=== PATIENT | male | born 1960 | race Caucasian/White ===

== ENCOUNTER → 2017-10-02 | Outpatient (CLI) | payer OTHER ==
[~2017-10-02] MED LIST: ACTOS15 MG; ADULT LOW DOSE81 MG; AMBIEN 10 MG TA10 MG; DIAZEPAM 5 MG5 MG; GLUCOPHAGE1000 MG; HYDROCHLOROTHIA25 M1; KEFLEX500 MG PO; LIPITOR40 MG; LISINOPRIL40 MG; LOPRESSOR100 MG; PREDNISONE50 MG PO; PRILOSEC 20 MG20 MG
[2017-10-02 10:21] LABS: CREATININE 1.7 mg/dL (0.6-1.3)
== END ==
LOC: M.LAB 10-01 15:00
PROVIDERS: Family Medicine
DX: R06.02 Shortness of breath (principal); Z86.711 Personal history of pulmonary embolism

== ENCOUNTER 2020-10-21 15:34 | Inpatient (IN) | payer OTHER ==
[~2020-10-21] VITALS: Ht 175.3 cm; Wt 88.9 kg
--- NOTE | ~2020-10-21 | CON ---
[address] [address] CONSULTATION Name: SILAS DE LOS SANTOS Room: [address] IN M.R.#: [id number] Admission: 10/21/20 Attend Phys: Stefany Ordonez Discharge: 10/25/20 Date of : 60 Report #: [id number] THIS REPORT FOR: cc: Kashif Mosquera Russell J. DO Khosla, Parveen K. MD ~ DOC #: [id number] Av Flynn MD DATE OF CONSULTATION: 10/22/2020 HISTORY OF PRESENT ILLNESS: This is a 60-year-old male patient who is evaluated by me for what looks like unusual and complicated history. 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 He got laid off because of the pandemic. Then, he went back to work and realized that he could not work because he fell down and his balance was poor. He drinks significant amount of alcohol in the baseline. When I asked the patient's whether he drank more alcohol than usual when he was laid off from pandemic and was sitting at home, she was somewhat defensive and I could not tell, but it looks like he has drank alcohol for some time. She says the problem was going on for some time. He had developed some ataxia and some memory issues. Most of the symptoms were nonspecific, but it was going on for some time, but then he became catatonic. He will stare into the blank. He was admitted to [facility] and subsequently was transferred to [facility], which I suppose was either because of prolonged EEG monitoring or a consultation with an epileptologist. She said they told her that he had seizure, but I do not know what the final diagnosis was because it did not look like they put him on any anticonvulsant. Subsequently, the patient is here, he was catatonic before he came, but he has become somewhat better. REVIEW OF SYSTEMS: Indicates that his memory has become poor. He was pretty sharp before this happened, according to the . He has some pinched nerve in the neck. It looks like he drinks significant amount of alcohol, but he also smokes. He has no history of anxiety or depression as I understand. I do not know what the final diagnosis at [facility] was, whether the Psychiatry was consulted or not. Rest of the 14-point review of system was noncontributory. PAST MEDICAL HISTORY: Negative for any psychiatric problem. FAMILY HISTORY: Unremarkable. SOCIAL HISTORY: He drinks alcohol as well as smokes. PHYSICAL EXAMINATION: VITAL SIGNS: His blood pressure is 155/87, pulse rate is 121, [place] [address] CONSULTATION Name: SILAS DE LOS SANTOS Room: [address] IN .#: [id number] Admission: 10/21/20 Attend Phys: Stefany Ordonez Discharge: 10/25/20 Date of : 60 Report #: [id number] is 98.5. GENERAL: He is alert. He just basically stares into the blank. When I asked him what month it is, it takes him a long time, but ultimately he is able to tell me it is September. When I asked him what hospital he is in, he said it is [facility]. When I asked him who the president is, he can tell me. He is a very well-developed individual. He does not have any hearing or vision issues. NEUROLOGIC: His ability to understand the instructions to carry out a neurological examination is limited. I tried to do the cranial nerve examination. I do not see any focality. Neuromuscular examination was carried out. His strength looks unremarkable. Position sense is difficult to tell because he does not even understand the instructions. I did the cerebellar sign and his qluhos-pb-xcmb and nhdb-lq-qksd is unremarkable. He does it poorly because he does not understand the instructions. He does not have any meningeal sign. He did not cooperate with the fundus examination. LABORATORY DATA: His white count is 6.3. Sodium is somewhat low at 132, it has been low for a long time for some reason. His creatinine is 1.5. His TSH is normal. He did have a CT scan of the head which does not show any acute abnormality. IMPRESSION AND PLAN: This is a pretty unusual history. We need his record in [facility] to see what they did and if they found any organic pathology. She thinks even he had an MRI. I have asked them to pull those records out and we will see what those records show. We may even have to do the spinal tap, it is a relatively new onset, but the story is not very persistent in that regard. I will put him on some thiamine and multivitamin. I will also suggest a psychiatric evaluation, although we need to put some more effort to rule out any ORE [employer]ER organic pathology in this patient. Dr. Woody will follow up this patient with you from tomorrow and I will check out with him. MD PENNIE Alejandra/ZAC By: [id number] Flynn MD /carlene
[~2020-10-21 15:34] MED LIST changes: -ADULT LOW DOSE81 MG; +ADULT LOW DOSE81 MG PO; +ANORO ELLIPTA1 EACH; -DIAZEPAM 5 MG5 MG; +DIAZEPAM 5 MG5 MG PO; +GEMFIBROZIL 60600 M1 PO; -GLUCOPHAGE1000 MG; +GLUCOPHAGE1000 MG PO; +GLYXAMBI 10 MG1 EACH PO; +HYDROCODONE-ACE15 ML PO; +IRON325 PO; +LASIX 40 MG TAB40 M2 PO; -LIPITOR40 MG; +LIPITOR40 MG PO; +LOPRESSOR100 M1 PO; +LOSARTAN POTAS100 MG PO; +LYRICA 50 MG50 MG PO; +MENS ONE A DAY PO; +NORVASC10 MG PO; +PREDNISONE 10 M10 MG PO; -PRILOSEC 20 MG20 MG; +PRILOSEC 20 MG20 MG PO; +SINGULAIR 10 MG10 M1 PO; +TOPROL XL100 MG PO; +UNISOM50 MG PO; +VENTOLIN HFA 1818 GM INH
[2020-10-21 15:45] VITALS: BP 138/78
[2020-10-21] MEDS ORDERED: KLOR-CON 10 ER10 MEQ PO (16:00)
[2020-10-21 16:07] LABS: ABSOLUTE EOSINOPHILS 0.2 thou/uL (0.0-0.7); ABSOLUTE LYMPHOCYTES 1.2 thou/uL (0.8-5.3); ABSOLUTE MONOCYTES 0.7 thou/uL (0.0-1.2); ABSOLUTE NEUTROPHILS 4.2 thou/uL (1.6-8.1); BASOPHILS 0.7 %; EOSINOPHILS 2.5 %; HEMATOCRIT 45.8 % (42.0-52.0); HEMOGLOBIN 15.3 gm/dL (14.0-18.0); LYMPHOCYTES 19.6 %; MCH 31.3 pg (26.0-34.0); MCHC 33.5 g/dL (28.0-37.0); MCV 93.5 fL (80.0-100.0); MONOCYTES 10.3 %; MPV 8.8 fl. (7.2-11.1); NUCLEATED RBCS 0 /100WBC; PLATELET COUNT* 242 thou/uL (150-400); POLYS 66.9 %; RDW-CV 13.1 % (10.5-14.5); WBC 6.3 thou/uL (4.0-11.0)
[2020-10-21 16:16] LABS: CALCIUM 9.4 mg/dL (8.5-10.1); CREATININE 1.5 mg/dL (0.6-1.3); POTASSIUM 4.8 mmol/L (3.5-5.1)
[2020-10-21 16:21] LABS: APTT 27.4 Seconds (25.0-31.3); PROTIME 10.9 Seconds (9.20-11.50)
[2020-10-21 16:27] LABS: ALBUMIN 3.8 g/dL (3.4-5.0); TOTAL BILIRUBIN 0.4 mg/dL (<0.1-1.0); TOTAL PROTEIN 8.1 g/dL (6.4-8.2)
[2020-10-21 16:36] LABS: ACETAMINOPHEN < 2 ug/mL (10-30); ALCOHOL < 10 mg/dL (<10)
[2020-10-21 17:04] LABS: URINE BILIRUBIN NEGATIVE (Negative); URINE BLOOD NEGATIVE (Negative); URINE CLARITY CLEAR; URINE COLOR YELLOW; URINE GLUCOSE-RANDOM NEGATIVE (Negative); URINE KETONES NEGATIVE (Negative); URINE LEUKOCYTES-REFLEX NEGATIVE (Negative); URINE NITRITE-REFLEX NEGATIVE (Negative); URINE PROTEIN NEGATIVE (Negative); URINE UROBILINOGEN 0.2 E.U./dl (0.2-1.0)
[2020-10-21 17:11] LABS: AMP/METHAMP Negative (Negative); BARBITURATES Negative (Negative); BENZODIAZEPINES POSITIVE (Negative); COCAINE Negative (Negative); METHADONE Negative (Negative); OPIATES POSITIVE (Negative); PCP Negative (Negative); THC Negative (Negative)
[2020-10-21 19:55] VITALS: BP 135/68
[2020-10-21 21:05] VITALS: BP 153/86
[2020-10-21 23:50] VITALS: BP 149/78
[2020-10-22 04:00] VITALS: BP 155/87
--- NOTE | 2020-10-22 11:01 | EKG ---
[place] [address] ELECTROCARDIOGRAM REPORT Name: SILAS DE LOS SANTOS Room: [address] ADM IN [facility].#: [id number] Admission: 10/21/20 Attend Phys: Michael Greer Discharge: Date of : 60 Date of Service: 10/21/20 1605 Report #: [id number] THIS REPORT FOR: //name// [facility] ED Test Date: 2020-10-21 Test Time: 16:05:13 Pat Name: SILAS DE LOS SANTOS Department: Room: [facility] Gender: M Assistant Men'S Soccer Coach: GAVIN : 1960 Requested By: Clint Rose Order Number: [id number] MD: Micky Zaragoza Measurements Intervals [place] Rate: 99 P: 74 ID: [id number] QRS: 58 QRSD: 140 T: -70 QT: 364 QTc: 468 Interpretive Statements Sinus rhythm Probable left atrial enlargement LBBB Compared to ECG 08/12/2018 12:30:27 Sinus tachycardia no longer present Electronically Signed On 10-22-2020 11:01:01 CDT by Micky Zaragoza [email or web address] <ELECTRONICALLY SIGNED> By: Micky Zaragoza MD, FAC 10/22/20 1101 1605 1605 Micky Zaragoza MD, [facility] /EPI
--- NOTE | 2020-10-22 11:03 | EKG ---
[place] [address] ELECTROCARDIOGRAM REPORT Name: SILAS DE LOS SANTOS Room: [address] IN [facility].#: [id number] Admission: 10/21/20 Attend Phys: Michael Greer Discharge: Date of : 60 Date of Service: 10/21/201941 Report #: [id number] THIS REPORT FOR: //name// [facility] ED Test Date: 2020-10-21 Test Time: 19:42:21 Pat Name: SILAS DE LOS SANTOS Department: Room: [facility] Gender: M Learning And Development Specialist: BRANDIE : 1960 Requested By: Tahmina Roman Order Number: [id number] MD: Micky Zaragoza Measurements Intervals [place] Rate: 118 P: 0 NE: 97 QRS: 46 QRSD: 136 T: -78 QT: 392 QTc: 550 Interpretive Statements Sinus tachycardia Left bundle branch block Compared to ECG 10/21/2020 16:05:13 Sinus rhythm no longer present Electronically Signed On 10-22-2020 11:03:11 CDT by Micky Zaragoza [email or web address] <ELECTRONICALLY SIGNED> By: Micky Zaragoza MD, FACC 10/22/20 1103 41 41 Micky Zaragoza MD, [facility] /EPI
[2020-10-22 11:15] LABS: ABSOLUTE LYMPHOCYTES 1.1 thou/uL (0.8-5.3); ABSOLUTE NEUTROPHILS 6.8 thou/uL (1.6-8.1); BASOPHILS 0.5 %; EOSINOPHILS 0.2 %; HEMATOCRIT 47.6 % (42.0-52.0); HEMOGLOBIN 15.6 gm/dL (14.0-18.0); LYMPHOCYTES 12.7 %; MCHC 32.9 g/dL (28.0-37.0); MCV 94.2 fL (80.0-100.0); MONOCYTES 10.7 %; MPV 9.2 fl. (7.2-11.1); NUCLEATED RBCS 0 /100WBC; PLATELET COUNT* 286 thou/uL (150-400); POLYS 75.9 %; RBC 5.05 mil/uL (4.50-6.00); RDW-CV 13.5 % (10.5-14.5)
[2020-10-22 11:25] LABS: PROTIME 10.9 Seconds (9.20-11.50)
[2020-10-22 11:32] LABS: ALBUMIN 3.9 g/dL (3.4-5.0); CALCIUM 9.7 mg/dL (8.5-10.1); CREATININE 1.6 mg/dL (0.6-1.3); POTASSIUM 4.9 mmol/L (3.5-5.1); TOTAL BILIRUBIN 0.5 mg/dL (<0.1-1.0); TOTAL PROTEIN 8.3 g/dL (6.4-8.2)
[2020-10-22 12:14] LABS: CALCIUM 9.8 mg/dL (8.5-10.1); MAGNESIUM 1.4 mg/dL (1.8-2.4)
[2020-10-22 14:43] LABS: URINE BLOOD 3+ (Negative); URINE CLARITY CLEAR; URINE COLOR YELLOW; URINE GLUCOSE-RANDOM NEGATIVE (Negative); URINE KETONES TRACE (Negative); URINE NITRITE-REFLEX NEGATIVE (Negative); URINE PROTEIN NEGATIVE (Negative); URINE UROBILINOGEN 0.2 E.U./dl (0.2-1.0)
[2020-10-22 14:53] LABS: URINE BILIRUBIN 1+ (Negative); URINE LEUKOCYTES-REFLEX 2+ (Negative)
[2020-10-22 14:56] LABS: ICTOTEST (BILI CONFIRMATORY) Negative (Negative)
[2020-10-22 15:00] LABS: BACTERIA-REFLEX 1-9 Few /HPF (None Seen); CASTS None Seen /LPF (None Seen); CRYSTALS None Seen /LPF (None Seen); SQUAMOUS 4-10 Moderate /LPF (0-3); URINE RBC 3-10 Few /HPF (0-2); URINE WBC-REFLEX 6-15 Few /HPF (0-5)
[2020-10-22 20:00] VITALS: BP 110/67
[2020-10-23] VITALS: BP 127/77
[2020-10-23 04:37] LABS: HEMATOCRIT 41.5 % (42.0-52.0); HEMOGLOBIN 13.7 gm/dL (14.0-18.0); PLATELET COUNT* 219 thou/uL (150-400)
[2020-10-23 04:39] LABS: ABSOLUTE EOSINOPHILS 0.1 thou/uL (0.0-0.7); ABSOLUTE LYMPHOCYTES 1.3 thou/uL (0.8-5.3); ABSOLUTE MONOCYTES 0.7 thou/uL (0.0-1.2); ABSOLUTE NEUTROPHILS 2.8 thou/uL (1.6-8.1); BASOPHILS 0.7 %; EOSINOPHILS 1.5 %; LYMPHOCYTES 27.1 %; MCH 31.3 pg (26.0-34.0); MCHC 32.9 g/dL (28.0-37.0); MCV 95.1 fL (80.0-100.0); MONOCYTES 13.7 %; MPV 9.1 fl. (7.2-11.1); NUCLEATED RBCS 0 /100WBC; RBC 4.36 mil/uL (4.50-6.00); RDW-CV 13.1 % (10.5-14.5); WBC 4.9 thou/uL (4.0-11.0)
[2020-10-23 04:44] VITALS: BP 131/70
[2020-10-23 04:52] LABS: ALBUMIN 3.2 g/dL (3.4-5.0); CALCIUM 8.7 mg/dL (8.5-10.1); CREATININE 1.5 mg/dL (0.6-1.3); TOTAL BILIRUBIN 0.4 mg/dL (<0.1-1.0); TOTAL PROTEIN 7.2 g/dL (6.4-8.2)
[2020-10-23 08:00] VITALS: BP 144/58
[2020-10-23 12:00] VITALS: BP 147/83
[2020-10-23 16:08] VITALS: BP 145/90
[2020-10-23 20:00] VITALS: BP 141/79
[2020-10-24] VITALS (7 sets, daily range): BP systolic 131–161; BP diastolic 76–87
[2020-10-24 04:15] LABS: CALCIUM 8.9 mg/dL (8.5-10.1); CREATININE 1.2 mg/dL (0.6-1.3); MAGNESIUM 1.3 mg/dL (1.8-2.4); POTASSIUM 4.1 mmol/L (3.5-5.1)
[2020-10-24 12:02] LABS: ABSOLUTE EOSINOPHILS 0.1 thou/uL (0.0-0.7); ABSOLUTE LYMPHOCYTES 1.7 thou/uL (0.8-5.3); ABSOLUTE MONOCYTES 0.6 thou/uL (0.0-1.2); BASOPHILS 0.8 %; EOSINOPHILS 2.2 %; HEMATOCRIT 42.2 % (42.0-52.0); HEMOGLOBIN 13.7 gm/dL (14.0-18.0); LYMPHOCYTES 30.7 %; MCH 30.8 pg (26.0-34.0); MCHC 32.3 g/dL (28.0-37.0); MCV 95.1 fL (80.0-100.0); MONOCYTES 11.1 %; MPV 9.5 fl. (7.2-11.1); NUCLEATED RBCS 0 /100WBC; PLATELET COUNT* 217 thou/uL (150-400); POLYS 55.2 %; RBC 4.44 mil/uL (4.50-6.00); RDW-CV 13.3 % (10.5-14.5); WBC 5.5 thou/uL (4.0-11.0)
[2020-10-25 03:55] VITALS: BP 123/84
[2020-10-25 04:53] LABS: ABSOLUTE BASOPHILS 0.1 thou/uL (0.0-0.2); ABSOLUTE EOSINOPHILS 0.2 thou/uL (0.0-0.7); ABSOLUTE LYMPHOCYTES 1.6 thou/uL (0.8-5.3); ABSOLUTE MONOCYTES 0.7 thou/uL (0.0-1.2); ABSOLUTE NEUTROPHILS 3.5 thou/uL (1.6-8.1); BASOPHILS 1.3 %; EOSINOPHILS 2.7 %; HEMATOCRIT 40.9 % (42.0-52.0); HEMOGLOBIN 13.6 gm/dL (14.0-18.0); LYMPHOCYTES 26.3 %; MCH 31.1 pg (26.0-34.0); MCHC 33.2 g/dL (28.0-37.0); MCV 93.7 fL (80.0-100.0); MPV 8.8 fl. (7.2-11.1); NUCLEATED RBCS 0 /100WBC; PLATELET COUNT* 249 thou/uL (150-400); POLYS 57.7 %; RBC 4.36 mil/uL (4.50-6.00); RDW-CV 13.3 % (10.5-14.5); WBC 6.1 thou/uL (4.0-11.0)
[2020-10-25 05:13] LABS: CREATININE 1.2 mg/dL (0.6-1.3); MAGNESIUM 1.6 mg/dL (1.8-2.4)
[2020-10-25 12:09] VITALS: BP 123/84
[2020-10-25] MEDS ORDERED: PRENATAL PO (12:17)
[2020-10-25] MEDS ORDERED: METOPROLOL TART25 MG PO (12:17)
[2020-10-25] MEDS ORDERED: AUGMENTIN 875-1 EACH PO (12:17)
== END 2020-10-25 13:30 | disposition home or self-care (01) | DRG 98 ==
LOC: M.ERS 15:34 → M.TBA-ER 17:06 → M.2W 20:00
PROVIDERS: Emergency Medicine Emergency Medical Services; ADMIT Internal Medicine; ATTEND Internal Medicine
DX: G04.81 Other encephalitis and encephalomyelitis (principal); N39.0 Urinary tract infection, site not specified; E11.9 Type 2 diabetes mellitus without complications; I10 Essential (primary) hypertension; F17.210 Nicotine dependence, cigarettes, uncomplicated; F12.90 Cannabis use, unspecified, uncomplicated; Z20.822 Contact with and (suspected) exposure to COVID-19; Z90.49 Acquired absence of other specified parts of digestive tract; Z79.82 Long term (current) use of aspirin; Z79.899 Other long term (current) drug therapy; Z79.84 Long term (current) use of oral hypoglycemic drugs

== ENCOUNTER 2021-06-17 02:35 | Emergency (ER) | payer OTHER ==
[~2021-06-17] VITALS: Ht 182.9 cm; Wt 83.0 kg
[~2021-06-17 02:35] MED LIST changes: +AUGMENTIN 875-1 EACH PO; +KLOR-CON 10 ER10 MEQ PO; +METOPROLOL TART25 MG PO; +PRENATAL PO
[2021-06-17 04:50] LABS: HEMATOCRIT 41.8 % (42.0-52.0); MCH 33.8 pg (26.0-34.0); MCHC 33.6 g/dL (28.0-37.0); MCV 100.7 fL (80.0-100.0); MPV 7.6 fl. (7.2-11.1); RBC 4.15 mil/uL (4.50-6.00); WBC 3.7 thou/uL (4.0-11.0)
[2021-06-17 05:02] LABS: APTT 26.6 Seconds (25.0-31.3); PROTIME 9.8 Seconds (9.20-11.50)
[2021-06-17 05:34] LABS: CREATININE 0.9 mg/dL (0.6-1.3); POTASSIUM 4.3 mmol/L (3.5-5.1)
[2021-06-17 05:39] LABS: ALBUMIN 3.5 g/dL (3.4-5.0); TOTAL BILIRUBIN 0.6 mg/dL (<0.1-1.0); TOTAL PROTEIN 6.5 g/dL (6.4-8.2)
[2021-06-17 05:47] VITALS: BP 135/87
== END 2021-06-17 05:47 | disposition home or self-care (01) ==
LOC: M.ERS 02:35
PROVIDERS: Personal Emergency Response Attendant
DX: S09.90XA Unspecified injury of head, initial encounter (principal); F10.129 Alcohol abuse with intoxication, unspecified; Y90.9 Presence of alcohol in blood, level not specified; E11.9 Type 2 diabetes mellitus without complications; I10 Essential (primary) hypertension; F17.210 Nicotine dependence, cigarettes, uncomplicated; Z90.49 Acquired absence of other specified parts of digestive tract; Z79.899 Other long term (current) drug therapy; W22.8XXA Striking against or struck by other objects, initial encounter; Y93.89 Activity, other specified; Y92.89 Other specified places as the place of occurrence of the external cause; Y99.8 Other external cause status

== ENCOUNTER 2021-07-19 19:14 | Inpatient (IN) | payer OTHER ==
[~2021-07-19] VITALS: Ht 185.4 cm; Wt 86.2 kg
--- NOTE | ~2021-07-19 | EEG ---
[address] [address] EEG STUDY REPORT Name: SILAS DE LOS SANTOS Room: [address] IN .R.#: [id number] Admission: 07/19/21 Attend Phys: Stefany Ordonez Discharge: 07/21/21 Date of : 60 Report #: [id number] THIS REPORT FOR: cc: Kashif Mosquera Russell J. DO Khosla,Av Hughes MD ~ DATE OF SERVICE: 07/21/2021 This patient is being evaluated for the possibility of seizure. EEG was done by placing the electrode by standard 10-20 system of electrode placement. Both referential and sequential montages were used for recording. Background activity in this patient's EEG is about 10 Hz and 30 microvolt that is symmetrical. Photic stimulation was unremarkable. Throughout the record, no active epileptiform activity was noticed. IMPRESSION: This patient's EEG is within normal limits. Thank you very much for this referral. By: [id number] Fylnn MD /nt
[2021-07-19 19:17] VITALS: BP 168/98
[2021-07-19 20:13] LABS: ABSOLUTE LYMPHOCYTES 0.6 thou/uL (0.8-5.3); ABSOLUTE MONOCYTES 0.4 thou/uL (0.0-1.2); ABSOLUTE NEUTROPHILS 4.4 thou/uL (1.6-8.1); BASOPHILS 0.7 %; EOSINOPHILS 0.2 %; HEMATOCRIT 42.1 % (42.0-52.0); HEMOGLOBIN 14.2 gm/dL (14.0-18.0); LYMPHOCYTES 11.6 %; MCH 33.9 pg (26.0-34.0); MCHC 33.8 g/dL (28.0-37.0); MCV 100.5 fL (80.0-100.0); MONOCYTES 7.5 %; MPV 8.2 fl. (7.2-11.1); NUCLEATED RBCS 0 /100WBC; PLATELET COUNT* 178 thou/uL (150-400); RBC 4.19 mil/uL (4.50-6.00); RDW-CV 14.9 % (10.5-14.5); WBC 5.6 thou/uL (4.0-11.0)
[2021-07-19 20:22] LABS: CALCIUM 8.7 mg/dL (8.5-10.1); CREATININE 1.1 mg/dL (0.6-1.3); POTASSIUM 4.3 mmol/L (3.5-5.1)
[2021-07-19 20:32] LABS: ALBUMIN 3.2 g/dL (3.4-5.0); MAGNESIUM 1.3 mg/dL (1.8-2.4); TOTAL BILIRUBIN 1.3 mg/dL (<0.1-1.0); TOTAL PROTEIN 6.5 g/dL (6.4-8.2)
[2021-07-19 21:37] LABS: URINE BLOOD TRACE (Negative); URINE CLARITY CLEAR; URINE COLOR YELLOW; URINE GLUCOSE-RANDOM TRACE (Negative); URINE KETONES 1+ (Negative); URINE LEUKOCYTES-REFLEX NEGATIVE (Negative); URINE NITRITE-REFLEX NEGATIVE (Negative); URINE PROTEIN 2+ (Negative); URINE SPECIFIC GRAVITY >= 1.030 (1.005-1.030)
[2021-07-19 21:39] LABS: URINE BILIRUBIN 1+ (Negative)
[2021-07-19 21:42] LABS: ICTOTEST (BILI CONFIRMATORY) Positive (Negative)
[2021-07-20] VITALS (7 sets, daily range): BP systolic 120–141; BP diastolic 67–86
--- NOTE | 2021-07-20 09:49 | EKG ---
[place] [address] ELECTROCARDIOGRAM REPORT Name: SILAS DE LOS SANTOS Room: [address] [place] [address] ADM IN [facility]#: [id number] Admission: 07/19/21 Attend Phys: Michael Greer Discharge: Date of : 60 Date of Service: 07/19/211916 Report #: [id number] THIS REPORT FOR: //name// [facility] ED Test Date: 2021-07-19 Test Time: 19:17:59 Pat Name: SILAS DE LOS SANTOS Department: Room: [facility] Gender: M Product Safety Head: AGUILAR : 1960 Requested By: Kristal Palacios Order Number: [id number] MD: Basilio Alejo Measurements Intervals [place] Rate: 142 P: 0 IN: QRS: 98 QRSD: 139 T: -16 QT: 341 QTc: 524 Interpretive Statements Sinus tachycardia Left bundle branch block Nonspecific ST-T alterations Mild QT prolongation for rate Since the prior tracing minor ST-T changes have occurred Electronically Signed On 07-20-2021 9:49:14 CEMENT FINISHER by Basilio Alejo [email or web address] <ELECTRONICALLY SIGNED> By: Basilio Alejo MD, FAC 07/20/21 0949 16 16 Basilio Alejo MD, [facility] /EPI
--- NOTE | 2021-07-20 16:22 | NUR ---
Pt is admitted to the hospital on 07/19/21 for ETOH abuse and possible seizure due to withdrawl. Pt's is currently at [facility] in the ICU. Called pt's son - Parth Venegas at: to complete assessment. He reports pt lives in a house with spouse, and extended family. Son reports he moved back into the house to help take care of his father. He reports pt stays in the basement mainly and utlizes a walker. Pt needs assistance ambulating to the bathroom and bedroom and requires assistance with ADL's. No hx of HH/DME/or SNF. Pt is private pay. Pt fills prescriptions at the [facility] on [address] Pt recently saw his PCP Dr. Thacker. Anticipate pt will discharge back home with family providing 24 hour care. CM to continue to follow for discharge planning.
--- NOTE | 2021-07-20 18:25 | NUR ---
Patient admitted from ED this afternoon. VSS. IV infiltrated; awaiting new IV (unable to get IV with first attempt). Pt denies alcohol abuse; states he has 2 beers on occasion. Reports he has had similar seizure-like activity before (pasha stargissell). Pt's is patient in ICU at this facility. Pt has scabs and bruising to RFA from fall. States he "fell in the dark" at home about 1.5 mos ago. On fall precautions due to past fall and possible seizure. Will continue to monitor.
--- NOTE | 2021-07-20 23:34 | NUR ---
ASSUMED CARE OF PT AT 1900. PT IS ALERT AND ORIENTED. VSS. PERRLA. NO COMPLAINTS OF PAIN. NO SIEZURES. PT IS IN SINUS RYTHM ON THE TELEMETRY. PT IS RESTING COMFORTABLY IN BED. RESPIRATIONS ARE EVEN AND NONLABORED. WILL CONTINUE TO MONITOR PT.
[2021-07-21 01:46] VITALS: BP 142/76
[2021-07-21 04:00] VITALS: BP 144/75
[2021-07-21 05:41] LABS: CALCIUM 7.8 mg/dL (8.5-10.1); CREATININE 0.7 mg/dL (0.6-1.3); MAGNESIUM 1.4 mg/dL (1.8-2.4); PHOSPHORUS* 2.5 mg/dL (2.5-4.9); POTASSIUM 3.7 mmol/L (3.5-5.1)
[2021-07-21 08:07] VITALS: BP 141/74
--- NOTE | 2021-07-21 13:45 | NUR ---
cm completed an assessment w/pt who inidciated he lives home with his , who he stated is currently hospitalized at [facility], in which pt has threatened to leave AMA b/c "my needs me." Pt admitted for ETOH w/seizures d/t withdrawl. Pt lives with . Pt is independent w/adls. pt has a cane, and denies having a hx with either home health or snf.
--- NOTE | 2021-07-21 15:10 | NUR ---
Pt signed out AMA. Discharged from unit per WC accompanied by son. Monitor and IV dc'd.
== END 2021-07-21 15:12 | disposition left against medical advice (07) | DRG 894 ==
LOC: M.ERS 19:14 → M.TBA-ER 20:59 → M.2W 07-20 15:28
PROVIDERS: Emergency Medicine; ADMIT Internal Medicine; ATTEND Internal Medicine
DX: F10.10 Alcohol abuse, uncomplicated (principal); E11.9 Type 2 diabetes mellitus without complications; I10 Essential (primary) hypertension; R00.0 Tachycardia, unspecified; Z20.822 Contact with and (suspected) exposure to COVID-19; Z90.49 Acquired absence of other specified parts of digestive tract; Z53.29 Procedure and treatment not carried out because of patient's decision for other reasons